=== PATIENT | female | born 1950 | race Caucasian/White ===

== ENCOUNTER 2018-11-23 08:31 | Inpatient (IN) ==
--- NOTE | 2018-10-14 16:16 | PAT Medication Instructions ---
Medication Instructions Date of Service October 14, 2018 Home Medications ibuprofen 400 mg PO BID lorazepam 1 mg PO BID PRN multivitamin 1 tab PO QAM omega 3,6,9 combination no.7 1 tab PO QAM pravastatin 40 mg PO QAM ranitidine HCl 150 mg PO DAILY PRN simethicone [Phazyme] 180 mg PO DAILY PRN tolterodine 2 mg PO QPM valsartan-hydrochlorothiazide 1 tab PO QPM venlafaxine 37.5 mg PO BID ASK your surgeon for instructions ibuprofen 400 mg PO BID STOP taking 2 weeks before surgery (or as soon as possible if surgery is within 2 weeks) omega 3,6,9 combination no.7 1 tab PO QAM DO NOT take the morning of surgery multivitamin 1 tab PO QAM ranitidine HCl 150 mg PO DAILY PRN simethicone [Phazyme] 180 mg PO DAILY PRN Take morning of surgery With a small sip of water, OTHERWISE NOTHING TO EAT OR DRINK AFTER MIDNIGHT: lorazepam 1 mg PO BID PRN (if needed) pravastatin 40 mg PO QAM venlafaxine 37.5 mg PO BID Take evening before surgery lorazepam 1 mg PO BID PRN (if needed) ranitidine HCl 150 mg PO DAILY PRN (if needed) simethicone [Phazyme] 180 mg PO DAILY PRN (if needed) tolterodine 2 mg PO QPM valsartan-hydrochlorothiazide 1 tab PO QPM venlafaxine 37.5 mg PO BID Other Notes If you have any questions please call us at [phone] or [phone] or [phone] or [phone]
--- NOTE | 2018-10-15 09:04 | History & Physical Report ---
Date of Service October 15, 2018 Date of Surgery: 11-03-18 Assessment & Plan (1) Tricompartment osteoarthritis of right knee: Further care discussed with patient and at this point in time has failed conservative measures and would like to proceed with a right total knee replacement. Plan on discharge will be home with home health physical therapy. DVT prophalaxis with TEDs, SCDs and will also place on aspirin 81 mg p.o. b.i.d. for a month postop. Patient will have follow up appointment in our office two weeks post op for staple/suture removal and re-evaluation. Patient otherwise has no other questions or concerns. History of Present Illness Chief Complaint: right knee pain Primary Care Provider: Sai Molina Ms Palacios is a 68 year old female who complains of right knee pain, presents for pre-op evaluation prior to right total knee replacement at [facility] by Dr Godwin on 11-03-18. She presents with pain and decreased range of motion. She states that the symptoms have been chronic non-traumatic. The symptoms occur constantly with intermittent worsening. Currently the patient states that the symptoms are moderate. The pain is described as aching and sometimes sharp. The symptoms occur with mild activity. She rates her current pain as 3/10 and worst is 7/10. The pain radiates from the knee on the right side then to the lower leg on the right side. The symptoms are aggravated by daily activities, weight bearing, walking and standing. Jazzminery states that the symptoms are relieved by rest. In addition to right knee pain the patient is also experiencing clicking, instability, joint pain, limping and popping. Prior NSAIDs include ibuprofen and aleve. She has been treated with Euflexxa on the right side. She reports no improvement with the injection. Allergies Allergy/AdvReac Type Severity Reaction Status Date / Time No Known Allergies Allergy Verified 10/07/18 14:30 Home Medications Home Medications Medication Instructions Recorded Confirmed Type ibuprofen 400 mg PO BID 10/07/18 10/07/18 History lorazepam 1 mg PO BID PRN 10/07/18 10/07/18 History multivitamin 1 tab PO QAM 10/07/18 10/07/18 History omega 3,6,9 combination no.7 1 tab PO QAM 10/07/18 10/07/18 History pravastatin 40 mg PO QAM 10/07/18 10/07/18 History ranitidine HCl 150 mg PO DAILY PRN 10/07/18 10/07/18 History simethicone [Phazyme] 180 mg PO DAILY PRN 10/07/18 10/07/18 History tolterodine 2 mg PO QPM 10/07/18 10/07/18 History valsartan-hydrochlorothiazide 1 tab PO QPM 10/07/18 10/07/18 History venlafaxine 37.5 mg PO BID 10/07/18 10/07/18 History Past Med/Surg History Medical History Anxiety Depression Diverticular disease GERD (gastroesophageal reflux disease) History of salivary gland disease S/P RIGHT SIDED GLAND EXCISION Hyperlipidemia Hypertension Kidney stones Migraine Neuralgia FACIAL; INTERMITTENT "OVER THE YEARS"- MONITORED BY PCP Osteoarthritis Urinary bladder disorder NO FURTHER DETAILS Vertigo Surgical History H/O exploratory laparotomy 2/2 FERTILITY ISSUES History of cystoscopy + LITHO/STONE EXTRACTION History of herniorrhaphy History of hysterectomy TOTAL Family History Mother Family history of diabetes mellitus Social History Preferred Language: Telugu Communication Ability: Effective Machine Presser Required: No Beliefs That Will Affect Care: None Current Living Situation: Spouse Other Information That Helps Us Care for You: No Feels Safe at Home: Yes Safety Concerns: Feels Safe At This Time Smoking Status: Current every day smoker Hx Alcohol Use: No Hx Substance Use: No Review of Systems All systems reviewed & are unremarkable except as noted in HPI & below Constitutional: no fever, no chills and no sweats Respiratory: no cough, no dyspnea and no dyspnea on exertion Cardiovascular: no chest pain, no dyspnea and no orthopnea Gastrointestinal: no nausea and no vomiting Integumentary: no rash and no lesions Physical Exam Vital Signs (Past 24 Hours): Ht: 5ft 3inches Wt: 90.7kg BP: 140/70 Pulse: 68 Constitutional: WD/WN, vitals as above no acute distress Respiratory: normal respiratory effort, lungs clear to auscultation no respiratory distress, no labored breathing and does not use accessory muscles Cardiovascular: RRR, no murmur, no edema Gastrointestinal (Abdomen): normal bowel sounds, soft, nontender, no hepatosplenomegaly Musculoskeletal: Right Knee Exam Ambulates with a limp, overall varus Alignment, no Atrophy or Ecchymosis, mild Effusion, Maximum tenderness Medial joint line and diffuse, negative patellar Apprehension , mild Crepitation with motion, Patella position Neutral, Jennifer's Negative, Chito's - lateral positive, Chito's - medial positive, Posterior drawer- Negative, Anterior drawer Negative, Valgus stress Negative, Varus stress Negative, no Extensor lag, Pain with Active range of motion, also passive painful ROM, Range of motion 0/5/115. No pain with active/passive ROM of ankle. Lower Extremity Strength normal. Lower Extremity Neuro-vascular is normal Results & Data Diagnostic Findings xrays from 10/04/18 showing tricompartmental degenerative changes, greatest medial compartment and patellofemoral joints, findings consistent with joint space narrowing, osteophyte formation. overall varus alignment. no acute bony pathology noted, no loose bodies.
--- NOTE | 2018-10-15 11:49 | Anesthesiology Consultation ---
Date of Service October 15, 2018 Assessment & Plan (1) Encounter for pre-operative examination: - HGBA1C 7.4% on preop labs; no prior known history of diabetes. Surgeon and PCP made aware. Per surgeon, surgery is cancelled at this time due to elevated hgba1c on preop labs. Chart Review Chart Review: Patient seen in Pre Admission Testing Teaching & Discussion Pre-Anesthesia Teaching/Discussion Notes: Instructed NPO after midnight before surgery,except medications with 15 cc of water. Medication instructions provided according to the PAT guidelines. History Surgery Operation Date: 11/03/18 08:20 Proposed Procedures p Right Total Knee Arthroplasty - Aramis Godwin DO Height/Weight Height: 5 ft 3.5 in Weight: 94.1 kg Allergies Allergy/AdvReac Type Severity Reaction Status Date / Time No Known Allergies Allergy Verified 10/07/18 14:30 Medications Home Medications Medication Instructions Recorded Confirmed Last Taken ibuprofen 400 mg PO BID 10/07/18 10/07/18 Unknown lorazepam 1 mg PO BID PRN 10/07/18 10/07/18 Unknown multivitamin 1 tab PO QAM 10/07/18 10/07/18 Unknown omega 3,6,9 combination no.7 1 tab PO QAM 10/07/18 10/07/18 Unknown pravastatin 40 mg PO QAM 10/07/18 10/07/18 Unknown ranitidine HCl 150 mg PO DAILY PRN 10/07/18 10/07/18 Unknown simethicone [Phazyme] 180 mg PO DAILY PRN 10/07/18 10/07/18 Unknown tolterodine 2 mg PO QPM 10/07/18 10/07/18 Unknown valsartan-hydrochlorothiazide 1 tab PO QPM 10/07/18 10/07/18 Unknown venlafaxine 37.5 mg PO BID 10/07/18 10/07/18 Unknown Past Medical History Medical History Anxiety Depression Diverticular disease GERD (gastroesophageal reflux disease) CONTROLLED History of salivary gland disease S/P RIGHT SIDED GLAND EXCISION- "BENIGN"- MILD FLATTENING OF RIGHT SIDE OF LIP SINCE SURGERY Hyperlipidemia Hypertension Kidney stones Migraine Neuralgia FACIAL; INTERMITTENT "OVER THE YEARS" ? RELATED TO SINUSES- MONITORED BY PCP; NO RECENT ISSUES Obesity Osteoarthritis Overactive bladder Vertigo Past Family History Family History Mother Family history of diabetes mellitus Past Surgical History Surgical History H/O exploratory laparotomy 2/2 FERTILITY ISSUES History of cystoscopy + LITHO/STONE EXTRACTION History of herniorrhaphy INCISIONAL History of hysterectomy TOTAL Past Anesthesia History No Hx of Anesthesia Complications and No Family Hx of Anesthesia Complications History of PONV No Motion Sickness Screening History of Motion Sickness: No Social History Smoking Status: Current every day smoker Smoking cigarettes per day: <1/2 PPD X 40+ YEARS Do You Dip or Chew Tobacco: No Hx Alcohol Use: No Hx Substance Use: No substance use type: does not use Exercise / Class Metabolic Activity II 4-5 Yardwork/Stairs/Walk up hill Review of Systems Patient denies chest pain, shortness of breath, dyspnea on exertion, cough, wheezing, palpitations. Physical Exam Vital Signs VITALS BP 133/77 P 81 TEMP 98.7 SP02 95%RA RESP 20 PHYSICAL Full neck and c-spine range of motion. Full TMJ range of motion. TMD 3 finger breaths Mallampati Score 2 Dentition: full detures on upper; several missing sides/molars on lower Lungs: clear throughout to auscultation Cardiac: regular rate and rhythm, no murmurs noted Spine: normal Carotid arteries: negative bruit Extremities: no edema Short neck Testing Electrocardiogram Date: 10/15/18 Findings: + NSR @ (81) Chest X-Ray Date: 10/15/18 There is minimal lingular subsegmental atelectasis/scarring. A 4 mm opacity within left midlung zone, likely represents a postinflammatory granuloma. Laboratory Results 10/15/18 11:56 10/15/18 11:56 Blood Type O Positive 10/15/18 11:56 Antibody Screen NEGATIVE 10/15/18 11:56 PT 10.2 Seconds (9.0-12.0) 10/15/18 11:56 INR 1.0 (0.9-1.1) 10/15/18 11:56 APTT 26.6 Seconds (21.0-31.0) 10/15/18 11:56 Hemoglobin A1c 7.4 % (4.5-5.6) H 10/15/18 11:56 Urine Color Yellow 10/15/18 11:56 Urine Appearance Clear (Clear) 10/15/18 11:56 Urine pH 5.0 (4.5-7.5) 10/15/18 11:56 Ur Specific [place] 1.013 (1.000-1.030) 10/15/18 11:56 Urine Protein Negative (Negative) 10/15/18 11:56 Urine Glucose (UA) Negative (Negative) 10/15/18 11:56 Urine Ketones Negative (Negative) 10/15/18 11:56 Urine Nitrite Negative (Negative) 10/15/18 11:56 Ur Leukocyte Esterase 1+ (Negative) H 10/15/18 11:56 Urine WBC (Auto) 10-30 /hpf (0-5) H 10/15/18 11:56 Urine RBC (Auto) 0-4 /hpf (0-4) 10/15/18 11:56 U Hyaline Cast (Auto) 0 /lpf (0-5) 10/15/18 11:56 U Epithel Cells (Auto) 5-10 /lpf (0-5) H 10/15/18 11:56 Urine Bacteria (Auto) 2+ (Negative) H 10/15/18 11:56 10/15/18 11:56 Urine Culture - Final Urine,Clean Catch Escherichia coli Surgeon made aware of abnormal UA.
[2018-10-15 12:42] LABS: Basophils # (auto) 0.03 K/uL (0-0.2); Basophils % (auto) 0.3 %; Eosinophils # (auto) 0.73 K/uL (0-0.5); Eosinophils % (auto) 8.3 %; Hematocrit (blood only) 39.6 % (37-47); Hemoglobin 13.5 g/dL (12.0-16.0); Immature Granulocytes # (auto) 0.04 K/uL (0.00-0.02); Immature Granulocytes % (auto) 0.5 %; Lymphocytes # (auto) 2.12 K/uL (1.2-3.4); Lymphocytes % (auto) 24.1 %; Mean Corpuscular Hgb Conc 34.1 g/dL (32-36); Mean Corpuscular Volume 90.4 fL (80-100); Mean Platelet Volume 11.3 fL (7.4-10.4); Monocytes # (auto) 0.48 K/uL (0.11-0.59); Monocytes % (auto) 5.4 %; Neutrophils # (auto) 5.41 K/uL (1.4-6.5); Neutrophils % (auto) 61.4 %; Platelet Count 195 K/uL (130-400); RDW Coefficient of Variation 13.5 % (11.5-14.5); RDW Standard Deviation 44.2 fL (36.4-46.3); Red Blood Count 4.38 M/uL (4.2-5.4); White Blood Count 8.81 K/uL (4.8-10.8)
--- NOTE | 2018-10-15 12:42 | XRay Report ---
XR chest Pre-admission PA/Lat CLINICAL HISTORY: Preoperative chest COMPARISON STUDY: No previous studies for comparison. FINDINGS: There is minimal lingular subsegmental atelectasis/scarring. The heart is normal in size. T here is no failure. There is no focal pulmonary consolidation. There are no pleural effusions. A 4 mm opacity within left midlung zone, likely represents a postinflammatory granuloma.[ IMPRESSION: No active disease in the chest. Electronically signed by: aBrtolome Diallo M.D. 10/15/2018 12:41 PM
[2018-10-15 12:52] LABS: Albumin Level 3.8 gm/dl (3.4-5.0); BUN Creatinine Ratio 24.4 (10-20); Creatinine Clr Calc Pharmacy 75.2 ml/min; Est GFR (African American) 87.7; Est GFR (Non-African American) 75.7; Potassium 4.1 mmol/L (3.5-5.1)
[2018-10-15 13:07] LABS: Partial Thromboplastin Time 26.6 Seconds (21.0-31.0); Prothrombin Time 10.2 Seconds (9.0-12.0)
[2018-10-15 13:25] LABS: Appearance Urine Clear (Clear); Bacteria Urine Automated 2+ (Negative); Bilirubin Urine Negative (Negative); Blood Urine Negative (Negative); Cast Urine Automated 0 /lpf (0-5); Color Urine Yellow; Glucose Urine UA Negative (Negative); Ketones Urine Negative (Negative); Leukocyte Esterase Urine 1+ (Negative); Nitrite Urine Negative (Negative); Protein Urine Negative (Negative); RBC Urine Automated 0-4 /hpf (0-4); Specific Gravity Urine 1.013 (1.000-1.030); Urobilinogen Urine Negative (Negative)
[2018-10-15 13:28] LABS: Estimated Average Glucose 166 mg/dl; Hemoglobin A1C 7.4 % (4.5-5.6)
--- NOTE | 2018-11-19 09:34 | History & Physical Report ---
Date of Service November 19, 2018 Date of Surgery 11-23-18 Assessment & Plan (1) Tricompartment osteoarthritis of right knee: Further care discussed with patient and at this point in time has failed conservative measures and would like to proceed with a right total knee replacement. Plan on discharge will be home with home health physical therapy. DVT prophalaxis with TEDs, SCDs and will also place on aspirin 81 mg p.o. b.i.d. for a month postop. Patient will have follow up appointment in our office two weeks post op for staple/suture removal and re-evaluation. Patient otherwise has no other questions or concerns. History of Present Illness Primary Care Provider: Sai Zulma Molina Ms Palacios is a 68 year old female who complains of right knee pain, presents for pre-op evaluation prior to right total knee replacement at [facility] by Dr Godwin on 11-03-18. She presents with pain and decreased range of motion. She states that the symptoms have been chronic non-traumatic. The symptoms occur constantly with intermittent worsening. Currently the patient states that the symptoms are moderate. The pain is described as aching and sometimes sharp. The symptoms occur with mild activity. She rates her current pain as 3/10 and worst is 7/10. The pain radiates from the knee on the right side then to the lower leg on the right side. The symptoms are aggravated by daily activities, weight bearing, walking and standing. Jazzminery states that the symptoms are relieved by rest. In addition to right knee pain the patient is also experiencing clicking, instability, joint pain, limping and popping. Prior NSAIDs include ibuprofen and aleve. She has been treated with Euflexxa on the right side. She reports no improvement with the injection. Allergies Allergy/AdvReac Type Severity Reaction Status Date / Time No Known Allergies Allergy Verified 10/07/18 14:30 Home Medications Home Medications Medication Instructions Recorded Confirmed Type ibuprofen 400 mg PO BID 10/07/18 10/07/18 History lorazepam 1 mg PO BID PRN 10/07/18 10/07/18 History multivitamin 1 tab PO QAM 10/07/18 10/07/18 History omega 3,6,9 combination no.7 1 tab PO QAM 10/07/18 10/07/18 History pravastatin 40 mg PO QAM 10/07/18 10/07/18 History ranitidine HCl 150 mg PO DAILY PRN 10/07/18 10/07/18 History simethicone [Phazyme] 180 mg PO DAILY PRN 10/07/18 10/07/18 History tolterodine 2 mg PO QPM 10/07/18 10/07/18 History valsartan-hydrochlorothiazide 1 tab PO QPM 10/07/18 10/07/18 History venlafaxine 37.5 mg PO BID 10/07/18 10/07/18 History metformin 500 mg PO BID 11/08/18 11/08/18 History Past Med/Surg History Medical History Anxiety Depression Diverticular disease GERD (gastroesophageal reflux disease) CONTROLLED History of salivary gland disease S/P RIGHT SIDED GLAND EXCISION- "BENIGN"- MILD FLATTENING OF RIGHT SIDE OF LIP SINCE SURGERY Hyperlipidemia Hypertension Kidney stones Migraine Neuralgia FACIAL; INTERMITTENT "OVER THE YEARS" ? RELATED TO SINUSES- MONITORED BY PCP; NO RECENT ISSUES Obesity Osteoarthritis Overactive bladder Vertigo Surgical History H/O exploratory laparotomy 2/2 FERTILITY ISSUES History of cystoscopy + LITHO/STONE EXTRACTION History of herniorrhaphy INCISIONAL History of hysterectomy TOTAL Family History Mother Family history of diabetes mellitus Social History Preferred Language: Sudanese Communication Ability: Effective Messenger Office Required: No Beliefs That Will Affect Care: None Current Living Situation: Spouse Other Information That Helps Us Care for You: No Feels Safe at Home: Yes Safety Concerns: Feels Safe At This Time Smoking Status: Current every day smoker Hx Alcohol Use: No Hx Substance Use: No Review of Systems All systems reviewed & are unremarkable except as noted in HPI & below Constitutional: no fever and no chills Respiratory: no cough and no dyspnea Cardiovascular: no chest pain and no dyspnea Gastrointestinal: no nausea and no vomiting Musculoskeletal: as per Subjective / HPI Integumentary: no rash and no lesions Physical Exam Vital Signs (Past 24 Hours): Ht: 5ft 3inches Wt: 90.7kg BP: 140/70 Pulse: 68 Constitutional: WD/WN, vitals as above no acute distress Respiratory: normal respiratory effort, lungs clear to auscultation no respiratory distress, no labored breathing and does not use accessory muscles Cardiovascular: RRR, no murmur, no edema Gastrointestinal (Abdomen): normal bowel sounds, soft, nontender, no hepatosplenomegaly Musculoskeletal: Right Knee Exam Ambulates with a limp, overall varus Alignment, no Atrophy or Ecchymosis, mild Effusion, Maximum tenderness Medial joint line and diffuse, negative patellar Apprehension , mild Crepitation with motion, Patella position Neutral, Jennifer's Negative, Chito's - lateral positive, Chito's - medial positive, Posterior drawer- Negative, Anterior drawer Negative, Valgus stress Negative, Varus stress Negative, no Extensor lag, Pain with Active range of motion, also passive painful ROM, Range of motion 0/5/115. No pain with active/passive ROM of ankle. Lower Extremity Strength normal. Lower Extremity Neuro-vascular is normal Results & Data Laboratory Results Laboratory Results WBC 8.81 K/uL (4.8-10.8) 10/15/18 11:56 RBC 4.38 M/uL (4.2-5.4) 10/15/18 11:56 Hgb 13.5 g/dL (12.0-16.0) 10/15/18 11:56 Hct 39.6 % (37-47) 10/15/18 11:56 MCV 90.4 fL (80-100) 10/15/18 11:56 MCH 30.8 pg (25-34) 10/15/18 11:56 MCHC 34.1 g/dL (32-36) 10/15/18 11:56 RDW Std Deviation 44.2 fL (36.4-46.3) 10/15/18 11:56 RDW Coeff of Lance 13.5 % (11.5-14.5) 10/15/18 11:56 Plt Count 195 K/uL (130-400) 10/15/18 11:56 MPV 11.3 fL (7.4-10.4) H 10/15/18 11:56 Immature Gran % (Auto) 0.5 % 10/15/18 11:56 Neut % (Auto) 61.4 % 10/15/18 11:56 Lymph % (Auto) 24.1 % 10/15/18 11:56 [place] % (Auto) 5.4 % 10/15/18 11:56 Eos % (Auto) 8.3 % 10/15/18 11:56 Baso % (Auto) 0.3 % 10/15/18 11:56 Immature Gran # (Auto) 0.04 K/uL (0.00-0.02) H 10/15/18 11:56 Neut # (Auto) 5.41 K/uL (1.4-6.5) 10/15/18 11:56 Lymph # (Auto) 2.12 K/uL (1.2-3.4) 10/15/18 11:56 [place]wall # (Auto) 0.48 K/uL (0.11-0.59) 10/15/18 11:56 Eos # (Auto) 0.73 K/uL (0-0.5) H 10/15/18 11:56 Baso # (Auto) 0.03 K/uL (0-0.2) 10/15/18 11:56 PT 10.2 Seconds (9.0-12.0) 10/15/18 11:56 INR 1.0 (0.9-1.1) 10/15/18 11:56 APTT 26.6 Seconds (21.0-31.0) 10/15/18 11:56 PTT Ratio 1.0 10/15/18 11:56 Sodium 137 mmol/L (136-145) 10/15/18 11:56 Potassium 4.1 mmol/L (3.5-5.1) 10/15/18 11:56 Chloride 103 mmol/L (98-107) 10/15/18 11:56 Carbon Dioxide 27 mmol/L (21-32) 10/15/18 11:56 Anion Gap 7.0 (3-11) 10/15/18 11:56 BUN 20 mg/dl (7-18) H 10/15/18 11:56 Creatinine 0.81 mg/dl (0.6-1.2) 10/15/18 11:56 Est Cr Clr Drug Dosing 75.2 ml/min 10/15/18 11:56 Est GFR ( Amer) 87.7 10/15/18 11:56 Est GFR (Non-Af Amer) 75.7 10/15/18 11:56 BUN/Creatinine Ratio 24.4 (10-20) H 10/15/18 11:56 Glucose 122 mg/dl (70-99) H 10/15/18 11:56 Estimat Average Glucose 166 mg/dl 10/15/18 11:56 Hemoglobin A1c 7.4 % (4.5-5.6) H 10/15/18 11:56 Calcium 10.0 mg/dl (8.5-10.1) 10/15/18 11:56 Albumin 3.8 gm/dl (3.4-5.0) 10/15/18 11:56 Urine Color Yellow 10/15/18 11:56 Urine Appearance Clear (Clear) 10/15/18 11:56 Urine pH 5.0 (4.5-7.5) 10/15/18 11:56 Ur Specific [place] 1.013 (1.000-1.030) 10/15/18 11:56 Urine Protein Negative (Negative) 10/15/18 11:56 Urine Glucose (UA) Negative (Negative) 10/15/18 11:56 Urine Ketones Negative (Negative) 10/15/18 11:56 Urine Blood Negative (Negative) 10/15/18 11:56 Urine Nitrite Negative (Negative) 10/15/18 11:56 Urine Bilirubin Negative (Negative) 10/15/18 11:56 Urine Urobilinogen Negative (Negative) 10/15/18 11:56 Ur Leukocyte Esterase 1+ (Negative) H 10/15/18 11:56 Urine WBC (Auto) 10-30 /hpf (0-5) H 10/15/18 11:56 Urine RBC (Auto) 0-4 /hpf (0-4) 10/15/18 11:56 U Hyaline Cast (Auto) 0 /lpf (0-5) 10/15/18 11:56 U Epithel Cells (Auto) 5-10 /lpf (0-5) H 10/15/18 11:56 Urine Bacteria (Auto) 2+ (Negative) H 10/15/18 11:56 Blood Type O Positive 10/15/18 11:56 Antibody Screen NEGATIVE 10/15/18 11:56 Diagnostic Findings xrays from 10/04/18 showing tricompartmental degenerative changes, greatest medial compartment and patellofemoral joints, findings consistent with joint space narrowing, osteophyte formation. overall varus alignment. no acute bony pathology noted, no loose bodies.
[~2018-11-23 08:31] MED LIST: ACETAMINOPHEN 500 MG TAB PO SCH; BUPIVACAINE 0.5 % 5 MG/1 ML PF 10ML VIAL ONE; CEFAZOLIN 2000MG 2,000 MG/15 ML SYR IV SCH; CeleBREX 200 MG CAP PO SCH; FAMOTIDINE 20 MG TAB PO SCH; GABAPENTIN 300 MG PO SCH; LR 500ML BOLUS, THEN 15ML/HR IV SCH; ROPIVACAINE 0.5% 5 MG/ML 30 ML VIAL ONE; ROPIVACAINE 0.5% HCL/PF 150 MG, BUPIVACAINE 0.5% MPF 30 ML, EPINEPHrine 30MG/30ML (OR U... INFIL SCH; TRANEXAMIC ACID 1,000 MG **IV Intra-op IV SCH; TRANEXAMIC ACID 1,000 MG **IV Pre-op IV SCH; dexAMETHasone 4 MG TAB PO SCH
[2018-11-23] MEDS ORDERED: fentaNYL citrate 100 MCG/2 ML VIAL ONE (09:59)
[2018-11-23] MEDS ORDERED: MIDAZOLAM HCL 1 MG/ML 2ML VIAL ONE (10:00)
--- NOTE | 2018-11-23 10:13 | History & Physical Bridge Note ---
Date of Service November 23, 2018 History & Physical Bridge Note I have examined the patient, reviewed the History & Physical and in the interval since the performance of the History & Physical I have noted the following changes of clinical significance: no changes noted
[2018-11-23] MEDS ORDERED: BACITRACIN INJ 50,000 UNIT VIAL ONE (10:43)
[2018-11-23] MEDS ORDERED: POVIDONE-IODINE OP SOLN 30 ML BTL ONE (10:43)
[2018-11-23] MEDS ORDERED: ORTHO JOINT ANESTHETIC ONE (10:43)
[2018-11-23] MEDS ORDERED: ePHEDrine sulfate 50 MG/ML AMP IV PRN (10:45)
[2018-11-23] MEDS ORDERED: KETOROLAC 30 MG/ML VIAL IV PRN (10:45)
[2018-11-23] MEDS ORDERED: PHENYLEPHRINE 100MCG/ML 5ML SYR IV PRN (10:45)
[2018-11-23] MEDS ORDERED: ATROPINE SULFATE 0.1 MG/ML 10ML SYR IV PRN (10:45)
[2018-11-23] MEDS ORDERED: HYDROmorphone INJ 1 MG/ML SYRINGE IV PRN (10:45)
[2018-11-23] MEDS ORDERED: ONDANSETRON INJ 2 MG/ML 2 ML VIAL IV PRN ×2 (10:45→14:12)
--- NOTE | 2018-11-23 12:25 | Operative Report ---
Post Operative Report Pre & Post Diagnosis Operation Date: 11/23/18 11:10 Pre-Op Diagnosis: Right Knee Osteoarthritis Post-Op Diagnosis: Right Knee Osteoarthritis Procedure Operation Date: 11/23/18 11:10 Actual Procedures p Right Total Knee Arthroplasty, Cemented(Right) utilizing [employer] journey to non-bloc total knee arthroplasty size 3 femur 3 tibia 9 polyethylene 29 oval patella- Aramis Godwin DO Surgeon Aramis Godwin DO [employer] Daniele ELKINS Estimated Blood Loss 5 Findings Consistent with Post-Op Diagnosis Patient presents with severe end-stage DJD right knee no response to conservative management intraoperative fibrosis with subchondral sclerosis marginal osteophytes bone to bone changes eburnated bone marker moderate to large effusion patient not responded to conservative measures including i njections Visco supplementation bracing Specimens Bone and cartilage Drains Medium bore Hemovac Complications none Disposition Accompanied Patient To Recovery: No Disposition: Recovery Room Indications Patient presents being seen and evaluated after failed attempts at conservative management she does have severe end-stage tricompartmental degenerative joint disease of the right knee the above intraoperative findings were noted with subchondral sclerosis eburnated bone cystic changes marginal osteophytes as she is failed attempts at Visco supplementation corticosteroid injection bracing relative rest activity modification presents for right total knee arthroplasty. Description of Procedure After proper prepping and draping of the Right lower extremity anterior midline incision was made over the region of the extensor extensor mechanism after meticulous hemostasis was obtained and maintained in subcutaneous tissues a medial parapatellar incision was made The patella was subluxed lateralward the medial lateral gutter were cleaned from any hypertrophic synovitis and scar tissue of the distal femoral block was placed and the distal femoral osteotomy cut was made subsequently the chamfers anterior and posterior osteotomy cuts were made utilizing the 4-in-1 block the tibia was subsequently subluxed anteriorward medial and ateral meniscal remnants were excised in their entirety remnants of the anterior and posterior cruciate ligaments were excised in their entirety excellent exposure of the proximal tibia was obtained the tibial osteotomy guide was placed on the proximal tibial osteotomy cut was made once again the knee was irrigated with copious amounts of sterile saline solution the patella was subsequently everted lateralward thickened scar tissue around the patella was removed the patella was subsequently cut utilizing a freehand technique and was drilled prepared for final preparation and placement of patella socially flexion-extension gaps were checked and the equal and symmetric trials were placed to the appropriate femoral and tibial trials with poly-spacer being placed for equal flexion and extension gaps and full range of motion including extension to 0 and flexion to 140 the trial components after having been taken to recovery range of motion was subsequently removed meticulous hemostasis was obtained and maintained subsequently a knee block injection of joint cocktail including ropivacaine 0.5% 150 mg. Bupivacaine 0.5% epinephrine 1-200,030 mL's toradol 30 mg dexamethasone 4 mg ketamine 10 mg clonidine 100 micrograms normal saline solution 30 mg was infiltrated into the soft tissues of the posterior knee medial lateral gutters and periosteal synovium special attention was paid to protect neurovascular structures at all times subsequently trial components having been removed the knee was irrigated with sterile saline solution. debris was removed the proximal tibia was subsequently prepared and was made ready for the placement of the tibial component tibial component was also cemented and tamped into position the femoral component was subsequently placed and cemented in the position the patellar component was subsequently cemented in position because hemostasis once again obtained and maintained wound having been thoroughly irrigated with debridement and debridement lavage was performed as well as a medial parapatellar incision closed with #1 Vicryl in interrupted fashion subcutaneous was closed with #2 Vicryl skin was closed with skin clips. PA-C was necessary for prepping and drapping as well as wound closure of deep fascia Sub cutaneous tissue and skin and was necessary for the case. A sterile compressive dressing was placed patient was taken to recovery in stable condition of report dictated by Tato I attest to the content of the Intraoperative Record and any orders documented therein. Any exceptions are noted below. I attest to the content of the Intraoperative Record and any orders documented therein. Any exceptions are noted below.
[2018-11-23] MEDS ORDERED: PROPOFOL IV EMULSION 10 MG/ML 20 ML VIAL IV ONE (12:40)
--- NOTE | 2018-11-23 14:03 | XRay Report ---
XR knee RT 2V routine CLINICAL HISTORY: Surgical Post Op postoperative COMPARISON: None. DISCUSSION: Anatomic alignment post total right knee arthroplasty. Good contact between prosthetic an d underlying bone. Expected soft tissue postoperative change. IMPRESSION: Anatomic alignment post total right knee arthroplasty. The above report was generated using voice recognition software. It may contain grammatical, syntax or spelling errors. Electronically signed by: Matheus Ruiz M.D. 11/23/2018 2:01 PM
[2018-11-23] MEDS ORDERED: BISACODYL 10 MG SUPP PR PRN (14:12)
[2018-11-23] MEDS ORDERED: HYDROmorphone INJ 0.5 MG/0.5 ML SYR IV PRN (14:12)
[2018-11-23] MEDS ORDERED: NALOXONE HCL 0.4 MG/1 ML VIAL/CARP IV PRN (14:12)
[2018-11-23] MEDS ORDERED: MAGNESIUM HYDROXIDE SUSP 30 ML UDC PO PRN (14:12)
--- NOTE | 2018-11-23 14:12 | Anesthesiology Progress Note ---
Date of Service November 23, 2018 Anesthesia Post Procedure Vital Signs Vital Signs: Temp Pulse Pulse Resp BP Pulse Ox 11/23/18 14:00 36.4 C L 64 16 100/61 98 11/23/18 13:50 68 12 105/59 L 99 11/23/18 13:40 67 14 95/58 L 91 11/23/18 13:30 68 15 103/57 L 91 11/23/18 13:20 71 19 98/45 L 95 11/23/18 13:10 74 19 103/68 95 11/23/18 13:03 36.1 C L 74 16 91/52 L 96 11/23/18 09:15 36.6 C 78 18 130/67 97 Pain Intensity Right Knee: Pain Intensity: 0 Notes Mental Status: alert / awake / arousable Patient Amnestic to Procedure: Yes Nausea / Vomiting: adequately controlled Pain: adequately controlled Airway Patency, RR, SpO2: stable & adequate BP & HR: stable & adequate Hydration State: stable & adequate Anesthetic Complications: no major complications apparent
[2018-11-23] MEDS ORDERED: SODIUM CHLORIDE 0.9% 1000ML 1,000 ML IV SCH (15:15)
[2018-11-23] MEDS: CEFAZOLIN 2000MG 2,000 MG/15 ML SYR IV SCH (21:20)
[2018-11-23] MEDS: OXYCODONE HCL IR 5 MG TAB (IMMEDIATE RELEASE) PO PRN (22:20)
[2018-11-23] MEDS: LORazepam 1 MG TAB PO PRN (22:20)
[2018-11-23] MEDS: TOLTERODINE TARTRATE LA 2 MG CAPCR PO SCH (22:21)
[2018-11-23] MEDS: SENNA 8.6 MG TAB PO SCH (22:21)
[2018-11-23] MEDS: ACETAMINOPHEN 500 MG TAB PO SCH (22:22)
[2018-11-23] MEDS: VALSARTAN 80 MG TAB PO SCH (22:22)
[2018-11-23] MEDS: DOCUSATE SODIUM 100 MG CAP PO SCH (22:23)
[2018-11-23] MEDS: hydroCHLOROthiazide 25 MG TAB PO SCH (22:23)
[2018-11-23] MEDS: ASPIRIN 81 MG ECTAB PO SCH (22:23)
[2018-11-23] MEDS: VENLAFAXINE HCL XR 37.5 MG CAPXR PO SCH (22:24)
[2018-11-24] MEDS: CEFAZOLIN 2000MG 2,000 MG/15 ML SYR IV SCH (02:41)
[2018-11-24] MEDS: OXYCODONE HCL IR 5 MG TAB (IMMEDIATE RELEASE) PO PRN ×5 (03:33→19:46)
[2018-11-24] MEDS: ACETAMINOPHEN 500 MG TAB PO SCH ×3 (06:08→22:14)
[2018-11-24 07:26] LABS: Hematocrit (blood only) 30.1 % (37-47); Hemoglobin 10.5 g/dL (12.0-16.0); Mean Corpuscular Hgb Conc 34.9 g/dL (32-36); Mean Corpuscular Volume 90.9 fL (80-100); Mean Platelet Volume 10.8 fL (7.4-10.4); Platelet Count 177 K/uL (130-400); RDW Coefficient of Variation 13.3 % (11.5-14.5); RDW Standard Deviation 44.2 fL (36.4-46.3); Red Blood Count 3.31 M/uL (4.2-5.4); White Blood Count 17.51 K/uL (4.8-10.8)
[2018-11-24 07:48] LABS: BUN Creatinine Ratio 19.2 (10-20); Calcium 8.7 mg/dl (8.5-10.1); Creatinine Clr Calc Pharmacy 61.4 ml/min; Est GFR (African American) 69.7; Est GFR (Non-African American) 60.1; Potassium 4.1 mmol/L (3.5-5.1)
--- NOTE | 2018-11-24 08:29 | Orthopedic Progress Note ---
Date of Service November 24, 2018 Assessment & Plan (1) Tricompartment osteoarthritis of right knee: Postop day 1 status post right total knee arthroplasty Begin PT and OT protocols today. Weightbearing as tolerated. DVT prophylaxis with aspirin twice daily, KAUR [place]. Pain management with acetaminophen hydromorphone and oxycodone. Discharge planning-patient is planning for home health services when discharged home. Subjective Postop day 1 status post right total knee arthroplasty. Patient is currently lying in bed. She is awake and alert and oriented. Pain is controlled at this time. She denies shortness of breath, chest pain, lightheadedness. States that when she was up to the bathroom yesterday evening, that her knee buckled however this seems to have subsided and or resolved. She states that she had this problem prior to having the knee replacement. She stated that she had a lot of numbness left in her lower extremity yesterday evening which she feels also was a contributing factor as well. She is planning on home health services when she is discharged to home. Physical Exam Vital Signs (Past 24 Hours): Last Vital Signs Temp 36.6 C 11/24/18 07:33 Pulse 68 11/24/18 07:33 Resp 17 11/24/18 07:33 BP 112/69 11/24/18 07:33 Pulse Ox 97 11/24/18 07:33 Physical Exam: Dressings are clean dry and intact. Calves are soft nontender. Neurovascular is intact. Toes are mobile. Hemovac drainage was 175 mL's from the previous shift. Results & Data Laboratory Results 11/24/18 11/24/18 11/23/18 Range/Units 07:05 07:05 14:29 WBC 17.51 H (4.8-10.8) K/uL RBC 3.31 L (4.2-5.4) M/uL Hgb 10.5 L (12.0-16.0) g/dL Hct 30.1 L (37-47) % MCV 90.9 (80-100) fL MCH 31.7 (25-34) pg MCHC 34.9 (32-36) g/dL RDW Std Deviation 44.2 (36.4-46.3) fL RDW Coeff of Lance 13.3 (11.5-14.5) % Plt Count 177 (130-400) K/uL MPV 10.8 H (7.4-10.4) fL Sodium 138 (136-145) mmol/L Potassium 4.1 (3.5-5.1) mmol/L Chloride 107 (98-107) mmol/L Carbon Dioxide 24 (21-32) mmol/L Anion Gap 7.0 (3-11) BUN 19 H (7-18) mg/dl Creatinine 0.98 (0.6-1.2) mg/dl Est Cr Clr Drug Dosing 61.4 ml/min Est GFR ( Amer) 69.7 Est GFR (Non-Af Amer) 60.1 BUN/Creatinine Ratio 19.2 (10-20) Glucose 147 H (70-99) mg/dl POC Glucose 163 H (70-99) Calcium 8.7 (8.5-10.1) mg/dl 11/23/18 11/23/18 Range/Units 13:08 09:06 WBC (4.8-10.8) K/uL RBC (4.2-5.4) M/uL Hgb (12.0-16.0) g/dL Hct (37-47) % MCV (80-100) fL MCH (25-34) pg MCHC (32-36) g/dL RDW Std Deviation (36.4-46.3) fL RDW Coeff of Lance (11.5-14.5) % Plt Count (130-400) K/uL MPV (7.4-10.4) fL Sodium (136-145) mmol/L Potassium (3.5-5.1) mmol/L Chloride (98-107) mmol/L Carbon Dioxide (21-32) mmol/L Anion Gap (3-11) BUN (7-18) mg/dl Creatinine (0.6-1.2) mg/dl Est Cr Clr Drug Dosing ml/min Est GFR ( Amer) Est GFR (Non-Af Amer) BUN/Creatinine Ratio (10-20) Glucose (70-99) mg/dl POC Glucose 138 H 121 H (70-99) Calcium (8.5-10.1) mg/dl
--- NOTE | 2018-11-24 08:31 | Anesthesiology Progress Note ---
Date of Service November 24, 2018 Anesthesia Post Procedure Vital Signs Vital Signs: Temp Pulse Pulse Resp BP Pulse Ox 11/24/18 07:33 36.6 C 68 17 112/69 97 11/24/18 03:49 36.4 C L 73 18 121/78 97 11/23/18 23:19 36.7 C 78 18 125/71 97 11/23/18 19:13 36.7 C 85 17 138/74 95 11/23/18 17:12 36.8 C 79 17 107/67 97 11/23/18 16:28 36.7 C 70 17 116/69 97 11/23/18 15:41 77 17 116/73 98 11/23/18 15:01 90 18 136/76 98 11/23/18 14:20 36.5 C 72 16 101/62 97 11/23/18 14:00 36.4 C L 64 16 100/61 98 11/23/18 13:50 68 12 105/59 L 99 11/23/18 13:40 67 14 95/58 L 91 11/23/18 13:30 68 15 103/57 L 91 11/23/18 13:20 71 19 98/45 L 95 11/23/18 13:10 74 19 103/68 95 11/23/18 13:03 36.1 C L 74 16 91/52 L 96 11/23/18 09:15 36.6 C 78 18 130/67 97 Pain Intensity Right Knee: Pain Intensity: 6 Notes Mental Status: alert / awake / arousable and participated in evaluation Patient Amnestic to Procedure: Yes Nausea / Vomiting: adequately controlled Pain: adequately controlled Airway Patency, RR, SpO2: stable & adequate BP & HR: stable & adequate Hydration State: stable & adequate Neuraxial Anesthesia: sensory block resolved Anesthetic Complications: Pt Satisfied with anesthetic care
[2018-11-24] MEDS ORDERED: PHARMACY GLYCEMIC MGMT CONSULT PRN (08:54)
[2018-11-24] MEDS ORDERED: INSULIN GLARGINE 100 UNIT/ML VIAL SC ONE (09:00)
[2018-11-24] MEDS ORDERED: INSULIN GLARGINE SOLOSTAR 100 UNITS/ML 3 ML PEN SC ONE ×2 (09:00→21:00)
[2018-11-24] MEDS: METFORMIN HCL 500 MG TAB PO SCH (09:11)
[2018-11-24] MEDS: ASPIRIN 81 MG ECTAB PO SCH ×2 (09:12→22:13)
[2018-11-24] MEDS: VENLAFAXINE HCL XR 37.5 MG CAPXR PO SCH ×2 (09:12→22:13)
[2018-11-24] MEDS: DOCUSATE SODIUM 100 MG CAP PO SCH ×2 (09:13→22:13)
[2018-11-24] MEDS: PRAVASTATIN SOD 40 MG TAB PO SCH (09:13)
[2018-11-24] MEDS: MULTIVITAMIN TAB PO SCH (09:14)
[2018-11-24] MEDS ORDERED: GLUCOSE 10 TABS/TUBE PO PRN (09:15)
[2018-11-24] MEDS ORDERED: GLUCAGON FOR INJ 1 MG VIAL SQ PRN (09:15)
[2018-11-24] MEDS ORDERED: DEXTROSE 50% 50 ML SYRINGE IV PRN (09:15)
[2018-11-24] MEDS ORDERED: CARBOHYDRATES FOR HYPOGLYCEMIA PO PRN (09:15)
[2018-11-24] MEDS ORDERED: GLUCOSE 40% GEL 15 GM TUBE PO PRN (09:15)
[2018-11-24] MEDS: INSULIN ASPART 100 UNITS/ML 3 ML PEN SC SCH ×4 (10:10→22:21)
--- NOTE | 2018-11-24 14:34 | Pharmacy Report ---
Glycemic Control Consultation - Date of Service November 24, 2018 - Scope Scope: Glycemic Pharmacist consulted by Daniele Jessica PA-C on 11/24 for glycemic control and to write orders per [facility] inpatient glycemic control protocol - Objective Weight: 90.01 kg Accuchecks BSG (last 24hrs): 11/23/18 11/24/18 11/24/18 14:29 07:05 09:09 Glucose 147 H POC Glucose 163 H 160 H Laboratory Data (last 24hrs): 11/24/18 07:05 Potassium 4.1 Carbon Dioxide 24 Anion Gap 7.0 Creatinine 0.98 Est Cr Clr Drug Dosing 61.4 HbA1c: Hemoglobin A1c 7.4 % (4.5-5.6) H 10/15/18 11:56 - Recent Pertinent Medications Outpatient Anti-diabetic Regimen: * Metformin 500 mg BID * A1c = 7.4 % 10/15/18 The patient is currently receiving: Risk Factors for Insulin Resistance: * Steroids: Dexamethasone 8 mg PO pre-op 11/23 * Recent Surgery: POD #1 * Diet: T2DM - Assessment & Plan Assessment & Plan: ASSESSMENT: * 68 yo female with a past medical history including type 2 diabetes, HLD, HTN, obesity, GERD admitted post right total knee replacement. * Consulted on POD #1; patient received 8 mg of dexamethasone PO prior to surgery * Fasting BSG 160 this AM, Prandial BSGs also slightly elevated * Will begin weight based basal/bolus insulin regimen and hold metformin for now- can restart tomorrow morning. PLAN FOR INPATIENT GLYCEMIC CONTROL: * Holding outpatient oral diabetes medications * Basal insulin * Lantus 8 units QAM * BSG <110 : Hold * BSG>110: 8 units * Bolus insulin * NovoLog per scale ACHS or Q6hrs while NPO * Goal Range: Low 110 mg/dL - High 140 mg/dL * Correction Factor: 25 mg/dL/unit * Nutritional / Prandial insulin per carb ratio of 1 unit per 10 grams CHO consumed * Please note that the plan above was derived based on current level of insulin resistance and hospital stress. These recommendations are appropriate for inpatient admission only. Plan of care upon discharge will need to be reassessed to avoid potential outpatient hypo/hyperglycemia. Thank you.
[2018-11-24] MEDS: TOLTERODINE TARTRATE LA 2 MG CAPCR PO SCH (22:13)
[2018-11-24] MEDS: VALSARTAN 80 MG TAB PO SCH (22:13)
[2018-11-24] MEDS: hydroCHLOROthiazide 25 MG TAB PO SCH (22:14)
[2018-11-24] MEDS: SENNA 8.6 MG TAB PO SCH (22:14)
[2018-11-25] MEDS: OXYCODONE HCL IR 5 MG TAB (IMMEDIATE RELEASE) PO PRN ×3 (01:05→13:46)
[2018-11-25] MEDS: ACETAMINOPHEN 500 MG TAB PO SCH ×2 (06:21→13:45)
--- NOTE | 2018-11-25 07:55 | Orthopedic Progress Note ---
Date of Service November 25, 2018 Assessment & Plan (1) Status post total right knee replacement: POD #2 s/p Right TKA pt/ot dvt proph with KAUR/SCD/ASA plan for d/c home with Home Health PT, likely discharge after PT today Subjective POD #2 s/p Right TKA denies CP/SOB denies fever/chills pain currently 11/24 Physical Exam Vital Signs (Past 24 Hours): Last Vital Signs Temp 36.8 C 11/25/18 06:54 Pulse 76 11/25/18 06:54 Resp 18 11/25/18 06:54 BP 127/72 11/25/18 06:54 Pulse Ox 98 11/25/18 06:54 Constitutional: WD/WN, vitals as above no acute distress Musculoskeletal: right knee: NVDI, calf SNT, negative saniya sign. DP palpable, able to wiggle toes/ankle movement without difficulty. prinea dressing clean dry and intact. expected post-operative bruising noted. Results & Data Laboratory Results XR knee RT 2V routine CLINICAL HISTORY: Surgical Post Op postoperative COMPARISON: None. DISCUSSION: Anatomic alignment post total right knee arthroplasty. Good contact between prosthetic and underlying bone. Expected soft tissue postoperative change. IMPRESSION: Anatomic alignment post total right knee arthroplasty. Diagnostic Findings Laboratory Results WBC 17.51 K/uL (4.8-10.8) H 11/24/18 07:05 RBC 3.31 M/uL (4.2-5.4) L 11/24/18 07:05 Hgb 10.5 g/dL (12.0-16.0) L 11/24/18 07:05 Hct 30.1 % (37-47) L 11/24/18 07:05 MCV 90.9 fL (80-100) 11/24/18 07:05 MCH 31.7 pg (25-34) 11/24/18 07:05 MCHC 34.9 g/dL (32-36) 11/24/18 07:05 RDW Std Deviation 44.2 fL (36.4-46.3) 11/24/18 07:05 RDW Coeff of Lance 13.3 % (11.5-14.5) 11/24/18 07:05 Plt Count 177 K/uL (130-400) 11/24/18 07:05 MPV 10.8 fL (7.4-10.4) H 11/24/18 07:05 Immature Gran % (Auto) 0.5 % 10/15/18 11:56 Neut % (Auto) 61.4 % 10/15/18 11:56 Lymph % (Auto) 24.1 % 10/15/18 11:56 [place] % (Auto) 5.4 % 10/15/18 11:56 Eos % (Auto) 8.3 % 10/15/18 11:56 Baso % (Auto) 0.3 % 10/15/18 11:56 Immature Gran # (Auto) 0.04 K/uL (0.00-0.02) H 10/15/18 11:56 Neut # (Auto) 5.41 K/uL (1.4-6.5) 10/15/18 11:56 Lymph # (Auto) 2.12 K/uL (1.2-3.4) 10/15/18 11:56 [place] # (Auto) 0.48 K/uL (0.11-0.59) 10/15/18 11:56 Eos # (Auto) 0.73 K/uL (0-0.5) H 10/15/18 11:56 Baso # (Auto) 0.03 K/uL (0-0.2) 10/15/18 11:56 PT 10.2 Seconds (9.0-12.0) 10/15/18 11:56 INR 1.0 (0.9-1.1) 10/15/18 11:56 APTT 26.6 Seconds (21.0-31.0) 10/15/18 11:56 PTT Ratio 1.0 10/15/18 11:56 Sodium 138 mmol/L (136-145) 11/24/18 07:05 Potassium 4.1 mmol/L (3.5-5.1) 11/24/18 07:05 Chloride 107 mmol/L (98-107) 11/24/18 07:05 Carbon Dioxide 24 mmol/L (21-32) 11/24/18 07:05 Anion Gap 7.0 (3-11) 11/24/18 07:05 BUN 19 mg/dl (7-18) H 11/24/18 07:05 Creatinine 0.98 mg/dl (0.6-1.2) 11/24/18 07:05 Est Cr Clr Drug Dosing 61.4 ml/min 11/24/18 07:05 Est GFR ( Amer) 69.7 11/24/18 07:05 Est GFR (Non-Af Amer) 60.1 11/24/18 07:05 BUN/Creatinine Ratio 19.2 (10-20) 11/24/18 07:05 Glucose 147 mg/dl (70-99) H 11/24/18 07:05 POC Glucose 129 (70-99) H 11/24/18 20:41 Estimat Average Glucose 166 mg/dl 10/15/18 11:56 Hemoglobin A1c 7.4 % (4.5-5.6) H 10/15/18 11:56 Calcium 8.7 mg/dl (8.5-10.1) 11/24/18 07:05 Albumin 3.8 gm/dl (3.4-5.0) 10/15/18 11:56 Urine Color Yellow 10/15/18 11:56 Urine Appearance Clear (Clear) 10/15/18 11:56 Urine pH 5.0 (4.5-7.5) 10/15/18 11:56 Ur Specific [place] 1.013 (1.000-1.030) 10/15/18 11:56 Urine Protein Negative (Negative) 10/15/18 11:56 Urine Glucose (UA) Negative (Negative) 10/15/18 11:56 Urine Ketones Negative (Negative) 10/15/18 11:56 Urine Blood Negative (Negative) 10/15/18 11:56 Urine Nitrite Negative (Negative) 10/15/18 11:56 Urine Bilirubin Negative (Negative) 10/15/18 11:56 Urine Urobilinogen Negative (Negative) 10/15/18 11:56 Ur Leukocyte Esterase 1+ (Negative) H 10/15/18 11:56 Urine WBC (Auto) 10-30 /hpf (0-5) H 10/15/18 11:56 Urine RBC (Auto) 0-4 /hpf (0-4) 10/15/18 11:56 U Hyaline Cast (Auto) 0 /lpf (0-5) 10/15/18 11:56 U Epithel Cells (Auto) 5-10 /lpf (0-5) H 10/15/18 11:56 Urine Bacteria (Auto) 2+ (Negative) H 10/15/18 11:56 Blood Type O Positive 10/15/18 11:56 Antibody Screen NEGATIVE 10/15/18 11:56
[2018-11-25] MEDS: METFORMIN HCL 500 MG TAB PO SCH (08:38)
[2018-11-25] MEDS: DOCUSATE SODIUM 100 MG CAP PO SCH (08:39)
[2018-11-25] MEDS: PRAVASTATIN SOD 40 MG TAB PO SCH (08:40)
[2018-11-25] MEDS: VENLAFAXINE HCL XR 37.5 MG CAPXR PO SCH (08:40)
[2018-11-25] MEDS: MULTIVITAMIN TAB PO SCH (08:40)
[2018-11-25] MEDS: ASPIRIN 81 MG ECTAB PO SCH (08:40)
[2018-11-25] MEDS: LORazepam 1 MG TAB PO PRN (08:42)
[2018-11-25] MEDS: INSULIN ASPART 100 UNITS/ML 3 ML PEN SC SCH ×2 (08:46→13:09)
[2018-11-25] MEDS ORDERED: INSULIN GLARGINE SOLOSTAR 100 UNITS/ML 3 ML PEN SC ONE (09:00)
--- NOTE | 2018-11-30 03:02 | Discharge Summary ---
DISCHARGE DIAGNOSIS: Right knee degenerative joint disease. SECONDARY DIAGNOSES: Anxiety, depression, diverticular disease, gastroesophageal reflux disease, history of salivary gland excision, hyperlipidemia, hypertension, renal calculi, migraine headaches, neuralgia, obesity, osteoarthritis, overactive bladder, vertigo. CONSULTS: None. COMPLICATIONS: None. PROCEDURES: Right total knee arthroplasty performed by Dr. Godwin on 11/23/2018. BRIEF HISTORY: As dictated in the history and physical. HOSPITAL SUMMARY: The patient was admitted on the above-noted date and had the above-noted surgery performed, which she tolerated well. On the first postoperative day, she was awake and alert. Pain was controlled. She denies shortness of breath, chest pain or lightheadedness. She had talked about her knee buckling with weightbearing the previous evening, but was resolving. She had some numbness noted over the lower extremity which also was resolving. Bowel sounds were stable. She was afebrile and she was started on physical therapy protocol and continued on DVT prophylaxis and pain management. Hemoglobin was 10.5. By her second postoperative day, she had no complaints. Pain was 4/10. Vital signs were stable and she is afebrile. Neurovascular intact. Calves were soft, nontender. The Prineo dressing was clean, dry and intact. She was progressing with her physical therapy, remaining stable and it was felt she could be discharged to home with home health PT. For further review, please see chart. LABORATORY AND X-RAY DATA: As per chart. DISCHARGE INSTRUCTIONS: The patient was discharged home in satisfactory condition on 11/25/2018. Diet: Regular. Activity: Weightbearing as tolerated on the right lower extremity with walker. Follow TK instruction sheets and special care instructions as noted. DISCHARGE MEDICATIONS: Acetaminophen 1000 mg p.o. q. 8 hours, aspirin 81 mg p.o. b.i.d., cefadroxil 500 mg p.o. b.i.d., Colace 100 mg p.o. b.i.d., oxycodone 5-10 mg p.o. q. 6-8 hours p.r.n., resume home meds as listed and stop taking ibuprofen.
== END 2018-11-25 14:34 | disposition home health service (06) | DRG 470 ==
LOC: ASU 08:31 → 3E 13:24
DX: Z83.3 Family history of diabetes mellitus; K21.9 Gastro-esophageal reflux disease without esophagitis; I10 Essential (primary) hypertension; M17.11 Unilateral primary osteoarthritis, right knee; Z68.34 Body mass index [BMI] 34.0-34.9, adult; Z79.899 Other long term (current) drug therapy; F41.9 Anxiety disorder, unspecified; N32.81 Overactive bladder; E66.9 Obesity, unspecified; F17.210 Nicotine dependence, cigarettes, uncomplicated; Z79.84 Long term (current) use of oral hypoglycemic drugs; Z79.1 Long term (current) use of non-steroidal anti-inflammatories (NSAID); E78.5 Hyperlipidemia, unspecified; E11.9 Type 2 diabetes mellitus without complications; F32.9 Major depressive disorder, single episode, unspecified